=== PATIENT | male | born 1990 ===

== ENCOUNTER 2017-10-16 11:03 | Emergency (ER) | payer MEDICAID ==
[2017-10-16 11:06] VITALS: BMI 25.0
[2017-10-16 11:07] VITALS: TEMP 98.1; O2SAT 97
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
[2017-10-16 13:22] LABS: BASO % 0.4 % (0.0-2.0); EOS # 0.2 K/uL (0.0-0.7); EOS % 1.4 % (0.0-4.0); HEMOGLOBIN 14.7 g/dL (12.0-18.0); LYMPH # 1.2 K/uL (1.0-4.3); LYMPH % 10.5 % (20.0-40.0); MEAN CELL VOLUME 89.5 fl (80.0-94.0); MEAN CORPUSCULAR HEMOGLOBIN 31.8 pg (27.0-31.0); MEAN CORPUSCULAR HGB CONC 35.6 g/dL (33.0-37.0); MEAN PLATELET VOLUME 8.8 fl (7.2-11.7); MONO # 0.9 K/uL (0.0-0.8); MONO % 8.3 % (0.0-10.0); NEUT % 79.4 % (50.0-75.0); RBC 4.6 Mil/uL (4.40-5.90); RED CELL DISTRIBUTION WIDTH 13.5 % (11.5-14.5); WHITE BLOOD COUNT 11.4 K/uL (4.8-10.8)
[2017-10-16 13:31] LABS: ALB/GLOB RATIO 1.1 (1.0-2.1); ALBUMIN 4.3 g/dL (3.5-5.0); ALT/SGPT 31 U/L (21-72); AST/SGOT 33 U/L (17-59); BLOOD UREA NITROGEN 11 mg/dl (9-20); CALCIUM 9.6 mg/dL (8.4-10.2); GFR AFRICAN-AMERICAN > 60; GFR NON-AFRICAN AMERICAN > 60; INR 1.1 (0.9-1.2); PROTHROMBIN TIME 11.9 Seconds (9.8-13.1)
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
[2017-10-16 19:13] VITALS: BP 148/90; PULSE 90; RESP 18
== END 2017-10-16 18:45 | disposition home or self-care (01) ==
LOC: H.ER 11:03
DX: S43.51XA Sprain of right acromioclavicular joint, initial encounter (principal); S83.421A Sprain of lateral collateral ligament of right knee, initial encounter; V03.90XA Pedestrian on foot injured in collision with car, pick-up truck or van, unspecified whether traffic or nontraffic accident, initial encounter
CPT/HCPCS: 73562; 73590; 73610; 73630; 73721; 76881; 80053; 85025; 85610; 96374; 99284; J1885

== ENCOUNTER 2017-10-27 15:47 | Emergency (ER) | payer MEDICAID ==
[2017-10-27 16:06] VITALS: BP 117/69; PULSE 73; RESP 16; TEMP 97.9; O2SAT 99
[2017-10-27 16:07] VITALS: BMI 25.8
--- NOTE | 2017-10-27 17:14 | RAD ---
PROCEDURE: Right Ankle Radiographs. HISTORY: pain, requested b podiatry COMPARISON: Right ankle radiographs 10/16/2017. FINDINGS: BONES: No acute fracture or destructive bony lesion identified. A small accessory ossicle seen inferior to the right lateral malleolus once again. JOINTS: No fracture subluxation. No definite ostial arthritis pattern. Medial malleolar soft tissue edema is reiterated. . Ankle mortise maintained. Talar dome intact SOFT TISSUES: See joint section above. OTHER FINDINGS: None. IMPRESSION: Stable radiography with no acute fracture or dislocation appreciated in the interval. Medial malleolar soft tissue edema is reiterated.
--- NOTE | 2017-10-27 17:16 | RAD ---
PROCEDURE: Right Foot Radiographs. HISTORY: pain COMPARISON: None. FINDINGS: BONES: No acute fracture or destructive bony lesion identified. JOINTS: No subluxation or dislocation however there is a mild hallux valgus deformity evident. Metatarsus adductus is suggested as well. SOFT TISSUES: Mild soft tissue edema surrounds the foot but is predominantly dorsal in location at the midfoot. OTHER FINDINGS: None. IMPRESSION: Mild diffuse soft tissue edema is seen associated with the foot but the majority is midfoot and dorsal. No retained radiodense foreign body or emphysema soft tissue changes. Mild hallux valgus deformity. Metatarsus adductus is suggested.
--- NOTE | 2017-10-27 17:17 | RAD ---
PROCEDURE: Radiographs of the right tibia and fibula. HISTORY: pain, requested by podiatry COMPARISON: None available. TECHNIQUE: Frontal and lateral views obtained. FINDINGS: BONES: No fracture or destructive lesion. JOINT SPACES: Unremarkable. OTHER FINDINGS: Soft tissue edema overlies the medial malleolus. IMPRESSION: No acute fracture or destructive bony lesion identified at the right tibia or fibula. Medial malleolar soft tissue edema identified.
--- NOTE | 2017-10-27 17:39 | US ---
PROCEDURE: Right lower extremity venous duplex Doppler. HISTORY: pain COMPARISON: None available. TECHNIQUE: Common femoral, superficial femoral, popliteal and posterior tibial veins were evaluated. Flow was assessed with color Doppler, compressibility, assessment of phasic flow and augmentation response. FINDINGS: COMMON FEMORAL VEIN: Unremarkable. SUPERFICIAL FEMORAL VEIN: Unremarkable. POPLITEAL VEIN: Unremarkable. POSTERIOR TIBIAL VEIN: Unremarkable. OTHER FINDINGS: Elongated fluid collection mid to distal shaft. The possibility of ruptured popliteal cyst should be considered with fluid dissecting between fascia layers. There is no surrounding vascularity on color Doppler interrogation to suggest an abscess. IMPRESSION: No evidence of deep venous thrombosis. Elongated fluid collection possibly reflecting ruptured popliteal cyst. No evidence of abscess.
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
== END 2017-10-27 19:08 | disposition home or self-care (01) ==
LOC: H.ER 15:47
DX: M79.661 Pain in right lower leg (principal)